=== PATIENT | female | born 1990 | race African-American/Black ===

== ENCOUNTER 2017-12-18 15:31 | Emergency (ER) | payer MEDICAID, SELFPAY | END 2017-12-18 17:50 | disposition home or self-care (01) | LOC: ERS 15:31 | DX: K02.9 Dental caries, unspecified (principal) | CPT/HCPCS: 99282 ==

== ENCOUNTER 2018-07-20 16:10 | Emergency (ER) | payer MEDICAID, SELFPAY ==
--- NOTE | 2018-07-20 18:02 | ULT ---
LEFT LOWER EXTREMITY VENOUS DOPPLER: History: Left lower extremity swelling. Comparison: None. Technique: Real-time grayscale, color doppler and spectral analysis of the left lower extremity venou s system was performed. The common femoral, femoral, proximal portions of the greater saphenous and d eep femoral veins, as well as the popliteal and posterior tibial veins were interrogated. Normal flow, augmentation and compression. IMPRESSION: No deep venous thrombosis. POS: HOME
== END 2018-07-20 17:39 | disposition home or self-care (01) ==
LOC: ERS 16:10
DX: M79.605 Pain in left leg (principal); Z71.6 Tobacco abuse counseling; F17.210 Nicotine dependence, cigarettes, uncomplicated
CPT/HCPCS: 99406

== ENCOUNTER 2019-04-19 21:02 | Emergency (ER) | payer SELFPAY ==
[2019-04-19] MEDS ORDERED: Ketorolac Tromethamine 30 MG/ML VIAL ONE (21:21)
--- NOTE | 2019-04-19 21:42 | RAD ---
XR Finger(s) Rt Min 2 View History: Thumb injury Comparison: None. Findings: No acute fracture. Soft tissues are mildly edematous. Impression: No acute osseous abnormality.
== END 2019-04-19 22:17 | disposition home or self-care (01) ==
LOC: ERS 21:02
DX: S60.111A Contusion of right thumb with damage to nail, initial encounter (principal); W23.1XXA Caught, crushed, jammed, or pinched between stationary objects, initial encounter
CPT/HCPCS: 11740; 96372; J1885

== ENCOUNTER 2020-07-16 11:08 | Emergency (ER) | payer SELFPAY | END 2020-07-16 11:49 | disposition home or self-care (01) | LOC: ERS 11:08 | DX: K04.7 Periapical abscess without sinus (principal); K03.81 Cracked tooth; F17.210 Nicotine dependence, cigarettes, uncomplicated | CPT/HCPCS: 99282 ==

== ENCOUNTER 2020-09-16 13:15 | Emergency (ER) | payer SELFPAY ==
[2020-09-16 21:01] LABS: SARS-CoV-2 MS2 Positive; SARS-CoV-2 N Gene Positive; SARS-CoV-2 S Gene Positive; SARS-CoV-2 by NAA DETECTED (NotDetected); SARS-CoV-2 orf1ab Positive
== END 2020-09-16 14:00 | disposition home or self-care (01) ==
LOC: ERS 13:15
DX: U07.1 COVID-19 (principal); F17.210 Nicotine dependence, cigarettes, uncomplicated
CPT/HCPCS: 87635; 87804; 99283; U0003

== ENCOUNTER 2021-04-25 08:57 | Emergency (ER) | payer BC, MEDICAID | END 2021-04-25 11:45 | disposition home or self-care (01) | LOC: ERS 08:57 | DX: R19.00 Intra-abdominal and pelvic swelling, mass and lump, unspecified site (principal) | CPT/HCPCS: 99283 ==